=== PATIENT | female | born 2000 | race Two or more races ===

== ENCOUNTER 2020-07-13 07:37 | Emergency (ER) | payer MEDICAID ==
[~2020-07-13] VITALS: Ht 167.6 cm; Wt 70.3 kg
--- NOTE | 2020-07-13 07:54 | NUR ---
PT AMBULATED TO THE ROOM FROM TRIAGE W/ A STEADY GAIT AT THIS TIME.
--- NOTE | 2020-07-13 08:20 | NUR ---
THIS IS A 20 YO F W/ C/O CP "FOR YEARS" UNDER LT BREAST. PT REPORTS TODAY PAIN IN STERNUM. PT DENIES MEDICAL HX. PT DENIES SOB/DIZZINESS. PT RESTING ON SMR SITERNEY W/ CALL LIGHT IN REACH AND SIDE RAILS UPX2. CONNECTED TO ALL MONITORING, RESP EVEN AND UNLABORED,
[2020-07-13] MEDS ORDERED: KETOROLAC 30 MG/1 ML ONE (08:25)
--- NOTE | 2020-07-13 08:27 | NUR ---
PIV STARTED, LABS DRAWN AND PT MEDICATED PER EMAR.
[2020-07-13] MEDS ORDERED: KETOROLAC 30 MG/1 ML IVPush ONE (08:30)
[2020-07-13] MEDS ORDERED: SODIUM CHLORIDE FLUSH 10ML SYR IVF ONE (08:30)
[2020-07-13 08:54] LABS: ALBUMIN 4.1 g/dL (3.4-5.0); ANION GAP 2 mmol/L (5-15); CALCIUM 9.1 mg/dL (8.5-10.1); CHLORIDE 113 mmol/L (98-107); CREATININE 0.73 mg/dL (0.55-1.02)
[2020-07-13 08:58] LABS: TROPONIN I < 0.015 ng/mL (0.000-0.045)
[2020-07-13 09:04] LABS: BASOPHILS % (AUTO) 1 % (0-1); EOSINOPHILS % (AUTO) 1 % (1-7); LYMPHOCYTES % (AUTO) 27 % (22-44); MEAN CORPUSCULAR HEMOGLOBIN 30.3 pg (27.0-34.8); MEAN CORPUSCULAR HGB CONC 33.5 g/dL (32.4-35.8); MEAN PLATELET VOLUME 8.9 fL (7.4-10.4); MONOCYTES % (AUTO) 7 % (2-9); NEUTROPHILS % (AUTO) 64 % (42-75); PLATELET COUNT 281 x10^3/uL (130-400); RED BLOOD COUNT 4.73 x10^6/uL (3.82-5.3); RED CELL DISTRIBUTION WIDTH 13.4 % (9.6-15.2)
[2020-07-13 09:11] LABS: MD NO
--- NOTE | 2020-07-13 09:30 | NUR ---
ALL TESTS RESULTED. PT IS UP FOR RECHECK AT THIS TIME.
[2020-07-13 10:36] VITALS: BP 103/61
== END 2020-07-13 11:10 | disposition home or self-care (01) ==
LOC: ED 09:32
DX: R06.02 Shortness of breath (principal); R07.89 Other chest pain; F17.210 Nicotine dependence, cigarettes, uncomplicated; Z87.59 Personal history of other complications of pregnancy, childbirth and the puerperium
CPT/HCPCS: 36415; 71045; 80048; 82040; 84484; 84702; 85025; 85379; 93005; 96374; 99285; J1885; 84703